=== PATIENT | male | born 1970 ===

== ENCOUNTER 2019-11-19 14:00 | Outpatient (CLI) | payer OTHER | END 2019-11-19 15:00 | disposition home or self-care (01) | LOC: PPH VACUNA 14:00 | DX: Z23 Encounter for immunization (principal) ==

== ENCOUNTER 2020-02-17 08:28 | Outpatient (CLI) | payer OTHER | END 2020-02-17 08:53 | disposition home or self-care (01) | LOC: LAB 08:28 | PROVIDERS: ATTEND Internal Medicine Cardiovascular Disease | DX: E03.8 Other specified hypothyroidism (principal); I10 Essential (primary) hypertension; E11.9 Type 2 diabetes mellitus without complications; E78.2 Mixed hyperlipidemia; N40.0 Benign prostatic hyperplasia without lower urinary tract symptoms; E55.9 Vitamin D deficiency, unspecified; M12.88 Other specific arthropathies, not elsewhere classified, other specified site; M46.47 Discitis, unspecified, lumbosacral region; J44.9 Chronic obstructive pulmonary disease, unspecified ==

== ENCOUNTER 2020-02-23 09:59 | Outpatient (CLI) | payer OTHER | END 2020-02-23 10:10 | disposition home or self-care (01) | LOC: NUCLEAR 09:59 | PROVIDERS: ATTEND Internal Medicine Cardiovascular Disease | DX: I87.2 Venous insufficiency (chronic) (peripheral) (principal) ==

== ENCOUNTER 2020-02-24 09:17 | Outpatient (CLI) | payer OTHER | END 2020-02-24 09:28 | disposition home or self-care (01) | LOC: NUCLEAR 09:17 | PROVIDERS: ATTEND Internal Medicine Cardiovascular Disease | DX: I73.9 Peripheral vascular disease, unspecified (principal) ==

== ENCOUNTER 2020-03-25 07:47 | Outpatient (CLI) | payer OTHER | END 2020-03-25 08:10 | disposition home or self-care (01) | LOC: LAB 07:47 | PROVIDERS: ATTEND Urology | DX: E29.1 Testicular hypofunction (principal); N40.0 Benign prostatic hyperplasia without lower urinary tract symptoms ==

== ENCOUNTER → 2020-09-29 | Outpatient (CLI) | payer OTHER | END | disposition home or self-care (01) | LOC: LAB 11:04 | PROVIDERS: ATTEND Emergency Medicine Pediatric Emergency Medicine | DX: Z03.818 Encounter for observation for suspected exposure to other biological agents ruled out (principal) ==

== ENCOUNTER 2020-11-30 08:00 | Outpatient (CLI) | payer OTHER | END 2020-11-30 08:30 | disposition home or self-care (01) | LOC: PPH VACUNA 08:00 | PROVIDERS: ATTEND Emergency Medicine Pediatric Emergency Medicine | DX: Z23 Encounter for immunization (principal) ==

== ENCOUNTER 2021-06-14 08:00 | Outpatient (CLI) | payer OTHER | END 2021-06-14 08:30 | disposition home or self-care (01) | LOC: PPH VACUNA 08:00 | PROVIDERS: ATTEND Emergency Medicine Pediatric Emergency Medicine | DX: Z23 Encounter for immunization (principal) ==

== ENCOUNTER 2021-11-22 14:10 | Outpatient (CLI) | payer OTHER | END 2021-11-22 14:15 | disposition home or self-care (01) | LOC: PPH VACUNA 14:10 | PROVIDERS: ATTEND Emergency Medicine Pediatric Emergency Medicine | DX: Z23 Encounter for immunization (principal) ==